=== PATIENT | female | born 1960 | race African-American/Black ===

== ENCOUNTER 2018-09-16 10:59 | Emergency (ER) | payer MEDICAID ==
[~2018-09-16] VITALS: Ht 160 cm; Wt 72.1 kg
[2018-09-16 11:23] VITALS: BP 103/76; Ht 160 cm; Wt 72.1 kg
== END 2018-09-16 12:47 | disposition home or self-care (01) ==
LOC: ED 10:59
DX: L42 Pityriasis rosea (principal)